=== PATIENT | female | born 1955 | race Caucasian/White ===

== ENCOUNTER 2019-11-14 07:37 | Emergency (ER) | payer BC ==
[2019-11-14 07:52] VITALS: BP 131/76; PULSE 84
--- NOTE | 2019-11-14 08:13 | EDM.PDOC ---
ED HPI GENERAL MEDICAL PROBLEM - General Chief Complaint: ENT Problem Stated Complaint: PAIN INSIDE THE MOUTH Time Seen by Provider: 11/14/19 08:03 Source of Information: Reports: Patient, RN Notes Reviewed History Limitations: Reports: No Limitations - History of Present Illness INITIAL COMMENTS - FREE TEXT/NARRATIVE: 64-year-old female presents emergency department a complaint of dental pain and facial swelling, she was recently at the dentist 3 days prior having some dental work done concern for infection was placed on amoxicillin unfortunately since being at the dentist she is now had increased swelling increased pain on the left side of her face despite the antibiotics. She does have a follow-up appointment with dentistry this week roof of mouth Pain Score (Numeric/FACES): 7 - Related Data Allergies Allergy/AdvReac Type Severity Reaction Status Date / Time No Known Allergies Allergy Verified 11/14/19 07:51 Home Meds: Home Meds Albuterol [Proair HFA] 2 puff INH ASDIRECTED PRN 12/27/14 [History] Simvastatin [Zocor] 20 mg PO BEDTIME 12/27/14 [History] traZODone 150 mg PO BEDTIME 12/27/14 [History] Ibuprofen 800 mg PO BID 10/17/17 [History] Amoxicillin 500 mg PO TID 11/14/19 [History] Past Medical History HEENT History: Reports: Cataract, Impaired Vision Cardiovascular History: Reports: High Cholesterol Respiratory History: Reports: COPD Gastrointestinal History: Reports: Colon Polyp Other Gastrointestinal History: bright blood with stooling and some dark stools last week 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 Social & Family History - Tobacco Use Smoking Status *Q: Current Every Day Smoker Years of Tobacco use: 40 Packs/Tins Daily: 1 - Caffeine Use Caffeine Use: Reports: Coffee - Recreational Drug Use Recreational Drug Use: No ED ROS ENT - Review of Systems Review Of Systems: See Below Constitutional: Reports: No Symptoms HEENT: Reports: Dental Pain, Other (Facial swelling) Respiratory: Reports: No Symptoms ED EXAM, ENT - Physical Exam Exam: See Below Text/Narrative:: Mouth mucosa is moist and pink dentition is poor she does have facial swelling superior palate left side this is tender to palpation she has 1 tooth remaining on that side I cannot identify the number airways open patent and clear examination of the face she does have some edema on the left side underneath the cheekbone as well as some puffiness underneath the left eye, extraocular eye movements are intact neck is supple no thyromegaly no tracheal deviation Exam Limited By: No Limitations General Appearance: Alert, WD/WN, No Apparent Distress Respiratory/Chest: No Respiratory Distress Course - Vital Signs Last Recorded V/S: Last Vital Signs Temp 97.5 F 11/14/19 07:59 Pulse 84 11/14/19 07:59 Resp 19 11/14/19 07:59 BP 131/76 11/14/19 07:59 Pulse Ox 90 L 11/14/19 07:59 Departure - Departure Time of Disposition: 08:12 Disposition: Home, Self-Care 01 Condition: Fair Clinical Impression: Dental abscess - Discharge Information Instructions: Dental Abscess, [id number] Referrals: Luis Michaels MD [Primary Care Provider] - Additional Instructions: Stop your amoxicillin at this time, start the clindamycin which is a different class of antibiotic, use hydrocodone as needed for breakthrough pain, use ibuprofen for baseline pain control, please contact dentistry next week for follow-up visit Sepsis Event Note (ED) - Evaluation Sepsis Screening Result: No Definite Risk - Focused Exam Vital Signs: Vital Signs Temp Pulse Resp BP Pulse Ox 11/14/19 07:59 97.5 F 84 19 131/76 90 L 11/14/19 07:51 97.5 F 84 19 131/76 90 L - Assessment/Plan Plan: Assessment Acuity = acute Site and laterality = dental abscess Etiology = probable bacterial cause Manifestations = facial pain Location of injury = Home Lab values = none Plan Change antibiotics clindamycin 300 mg p.o. every 6 hours x10 days, follow-up with dentistry next week hydrocodone 5/325 1 tab p.o. every 4-6 hours PRN total #10 provided for additional pain control This note was dictated using [employer] voice recognition software please call with any questions on syntax or grammar.
== END 2019-11-14 08:26 | disposition home or self-care (01) ==
LOC: JP.ED 07:37
DX: K04.7 Periapical abscess without sinus (principal); E78.00 Pure hypercholesterolemia, unspecified; J44.9 Chronic obstructive pulmonary disease, unspecified; F17.210 Nicotine dependence, cigarettes, uncomplicated; Z79.899 Other long term (current) drug therapy
CPT/HCPCS: 99282; 99283

== ENCOUNTER 2020-06-30 07:27 | Day surgery (SDC) | payer BC ==
[~2020-06-30 07:27] MED LIST: Bupivacaine 0.5% 50 ML MDV ONE; Lidocaine 1% with EPINEPHrine 1:100,000 50 ML MDV ONE
[2020-06-30] MEDS ORDERED: fentaNYL 250 MCG/5 ML SDV ONE (07:34)
[2020-06-30] MEDS ORDERED: Neostigmine Methylsulfate 1 MG/ML 5 ML Syringe ONE (07:35)
[2020-06-30] MEDS ORDERED: Rocuronium 50 MG/5 ML Vial ONE (07:35)
[2020-06-30] MEDS ORDERED: Ondansetron 4 MG/2 ML SDV ONE (07:35)
[2020-06-30] MEDS ORDERED: Dexamethasone 4 MG/ML SDV ONE (07:35)
[2020-06-30] MEDS ORDERED: Propofol 200 MG/20 ML SDV ONE (07:35)
[2020-06-30] MEDS ORDERED: Succinylcholine 200 MG/10 ML MDV ONE (07:35)
[2020-06-30] MEDS ORDERED: Glycopyrrolate 0.2 MG/ML 5 ML MDV ONE (07:35)
[2020-06-30] MEDS ORDERED: Sodium Chloride 0.9% 1,000 ML IV SCH (08:30)
[2020-06-30] MEDS ORDERED: ceFAZolin 2 GM in Premix Bag 1 BAG IV ONE (09:00)
[2020-06-30] MEDS ORDERED: metroNIDAZOLE/Normal Saline 500 MG in Premix Bag 1 BAG IV ONE (09:00)
[2020-06-30] MEDS ORDERED: Lidocaine 1% 2 ML ONE (09:06)
[2020-06-30] MEDS ORDERED: Benzocaine/Cetylpyridinium/Menthol Lozenge MUCMEM PRN (09:14)
[2020-06-30] MEDS ORDERED: hydrOXYzine HCL 100 MG/2 ML SDV IM PRN (09:14)
[2020-06-30] MEDS ORDERED: Zolpidem 5 MG Tab PO PRN (09:14)
[2020-06-30] MEDS ORDERED: Docusate Sodium 100 MG Cap PO PRN (09:14)
[2020-06-30] MEDS ORDERED: Acetaminophen/HYDROcodone 325-5 MG Tab PO PRN (09:14)
[2020-06-30] MEDS ORDERED: Ropivacaine 36 ML, dexAMETHasone 8 MG, EPINEPHrine 0.4 MG, Sodium Chloride 0.9% 41.6 ML NERVRT SCH ×4 (09:15)
[2020-06-30] MEDS ORDERED: Ondansetron 4 MG/2 ML SDV IVPUSH PRN (11:15)
[2020-06-30 13:14] VITALS: PULSE 58
[2020-06-30 14:06] VITALS: BP 167/74
--- NOTE | 2020-06-30 15:29 | OR ---
DATE OF PROCEDURE: 06/30/2020 SURGEON: Ryan Oshea MD PROCEDURE: Laparoscopic cholecystectomy. COMPLICATIONS: None. SMELTER LINER: None. ANESTHESIA: General. RISKS: Risks, benefits, alternatives, and limitations including, but not limited to infection, bleeding, cystic duct leaks, common bile duct injuries, the possibility of open surgery, and other risks not listed here. We also discussed the increased risk with this patient's gallbladder due to the calcification and contraction noted on imaging. The patient understands these risks and wishes to proceed. PROCEDURE IN DETAIL: The patient was placed in supine position. A supraumbilical curvilinear incision was made. A Veress needle was used to enter the abdomen without abnormality. A drop test was performed without abnormality. The Optiview trocar was then inserted. Two 10 and two 5 mm ports were entered under direct visualization. The gallbladder was noted to be wrapped in omentum and densely adhered. Blunt dissection was used to remove the omentum from the gallbladder itself. The gallbladder itself contained large stone, was heavily calcified and heavily contracted. This was densely scarred to the liver, and within close triangle, a significant amount of scarring was noted. Gentle blunt dissection was unable to break through the scarring and sharper dissection was then commenced. Due to the dense nature and the high risk of this gallbladder, a top-down dissection was commenced moving from the gallbladder distally to proximally. This dissection continued until a single pulsatile structure was entering the gallbladder and a single non-pulsatile structure was entering the gallbladder. itself was addressed with Harmonic Scalpel. The cystic duct itself was completely dissected and photo was taken of this. This was also opened along a small dissector to move into this to ensure this was the proper channel. This was clipped x3 and subsequently transected. The remaining one-third of the gallbladder was removed off the gallbladder bed. Minimal bleeding was controlled with electrocautery. The gallbladder was removed through a superior port. The abdomen was reinsufflated. The pressure was dropped to 7. No abnormal bleeding was noted. The abdomen was irrigated with 1 L of irrigation. The wounds were closed with 3- 0 Vicryl and 4-0 Vicryl in interrupted running fashion. The patient tolerated the procedure well. Ryan Oshea MD /[id number]
--- NOTE | 2020-07-01 07:55 | OR ---
DATE OF PROCEDURE: 06/30/2020 SURGEON: Ryan Oshea MD PROCEDURES: 1. Transversus abdominis plane blocks bilaterally. 2. Transversus rectus sheath blocks bilaterally. COMPLICATIONS: None. DRAWER IN DOBBY LOOM: None. RISKS: Risks, benefits, alternatives, and limitations including, but not limited to infection, bleeding, perforation, injury to abdominal structures, chronic wounds, chronic pain, and other risks not listed here were explained to the patient who wished to proceed. PROCEDURE IN DETAIL: The patient was placed in supine position. The left transversus plane was identified first. This was injected with 20% of the solution. This was repeated on the right side, same manner, same fashion, same technique in the same sequence. The bilateral rectus sheaths were also injected under direct visualization. At no point was the needle blindly advanced. The patient tolerated the procedure well. Ryan Oshea MD /[id number]
== END 2020-06-30 15:50 | disposition home or self-care (01) ==
LOC: JP.SDS 07:27 → JP.MS 09:14 → JP.SDS 15:50
PROVIDERS: ATTEND Surgery
DX: K80.10 Calculus of gallbladder with chronic cholecystitis without obstruction (principal); E78.00 Pure hypercholesterolemia, unspecified; J44.9 Chronic obstructive pulmonary disease, unspecified; Z87.891 Personal history of nicotine dependence; Z98.890 Other specified postprocedural states
CPT/HCPCS: 36415; 47562; 80053; 85027; 88304; A9270; J0171; J0330; J0690; J1100; J2405; J2704; J2710; J2795; J3010; J3410; J3490; J7030

== ENCOUNTER 2024-09-07 07:18 | Day surgery (SDC) | payer OTHER ==
[2024-09-07] MEDS ORDERED: fentaNYL 100 MCG/2 ML SDV ONE (07:36)
[2024-09-07] MEDS ORDERED: Propofol 200 MG/20 ML SDV ONE (07:36)
[2024-09-07] MEDS: Lactated Ringers 1,000 ML IV SCH (08:21)
[2024-09-07 10:42] VITALS: BP 150/68; PULSE 51
== END 2024-09-07 11:00 | disposition home or self-care (01) ==
LOC: JP.SDS 07:18
PROVIDERS: ATTEND Surgery
DX: Z12.11 Encounter for screening for malignant neoplasm of colon (principal); K57.30 Diverticulosis of large intestine without perforation or abscess without bleeding; K63.89 Other specified diseases of intestine; Z87.891 Personal history of nicotine dependence
CPT/HCPCS: 45378; J2704; J3010; J7120; 00812-QZ